=== PATIENT | female | born 1940 | race Caucasian/White ===

== ENCOUNTER → 2016-10-09 | Outpatient (CLI) | payer MEDICARE, OTHER | LOC: GMA 18:17 | PROVIDERS: ATTEND Nurse Practitioner Acute Care | DX: N30.00 Acute cystitis without hematuria (principal) ==

== ENCOUNTER → 2016-10-18 | Outpatient (CLI) | payer MEDICARE, OTHER ==
--- NOTE | 2016-10-18 16:20 | CT ---
EXAM DESCRIPTION: CT ABDOMEN PELVIS WITHOUT IV CONTRAST CLINICAL HISTORY: URINARY TRACT INFECTION, LLQ PAIN COMPARISON: None. TECHNIQUE: Noncontrast transaxial CT images of the abdomen and pelvis are obtained using renal stone imaging protocol. CT scan done according to ALARA (As Low As Reasonably Achievable). FINDINGS: Visualized lung bases show no acute findings. Noncontrast appearance of the liver, spleen, pancreas, and adrenal glands is unremarkable. Probable small hiatal hernia. Cholecystectomy changes without biliary tract obstruction. Mild to moderate atherosclerotic disease. Kidneys show no abnormal calcifications. No ureteral calcification or obstruction is seen. Urinary bladder is contracted and not well evaluated. There is surgical absence of the uterus. The ovaries are not identified. Appendix is not seen. No small bowel obstruction. Mildly increased amount of stool throughout the colon is seen. There are moderate scattered diverticuli of the descending to sigmoid colon without associated inflammatory changes or fluid collections. Osseous structures show no aggressive bony lesions. Curvature of the mid lumbar spine with convexity towards the left. Moderate degenerative changes of the mainly lower lumbar spine are seen. No pathologic abdominal or retroperitoneal lymphadenopathy. Small fat containing umbilical hernia is seen. IMPRESSION: No acute findings on CT of the abdomen and pelvis. No significant nephrolithiasis or ureteral obstruction. Colon diverticulosis without CT evidence of diverticulitis. Electronically signed by: Maxime Sheldon MD 10/18/2016 16:18
== END ==
LOC: RESP 14:58
PROVIDERS: ATTEND Family Medicine
DX: N39.0 Urinary tract infection, site not specified (principal); K57.30 Diverticulosis of large intestine without perforation or abscess without bleeding; R10.32 Left lower quadrant pain

== ENCOUNTER → 2016-11-29 | Outpatient (CLI) | payer MEDICARE, OTHER | END | disposition home or self-care (01) | LOC: GMAJ 16:44 | PROVIDERS: ATTEND Family Medicine | DX: I10 Essential (primary) hypertension (principal) ==

== ENCOUNTER → 2016-12-27 | Outpatient (CLI) | payer MEDICARE, OTHER | END | disposition home or self-care (01) | LOC: LAB.O 09:13 | PROVIDERS: ATTEND Nurse Practitioner Family | DX: I10 Essential (primary) hypertension (principal); E53.8 Deficiency of other specified B group vitamins; E55.9 Vitamin D deficiency, unspecified ==

== ENCOUNTER → 2017-01-18 | Outpatient (CLI) | payer MEDICARE, OTHER ==
--- NOTE | 2017-01-19 04:24 | RAD ---
Procedure: XR KNEE 4 OR MORE VIEWS Exam Date: 01/18/2017 Ordering Provider: JUDY BATES Clinical Indication: PAIN Comparison: None FINDINGS: There is no fracture or dislocation. Moderate to severe joint space narrowing in the medial compartment. Chondrocalcinosis. No lytic or sclerotic lesions. No joint effusion. No subcutaneous gas. IMPRESSION: 1. No acute fracture or dislocation in the left knee. 2. Moderate to severe joint space narrowing in the medial compartment. 3. Chondrocalcinosis. Electronically signed by: Agustín De La Paz MD 01/19/2017 4:24 AM CDT
--- NOTE | 2017-01-19 04:53 | RAD ---
Procedure: XR PELVIS 1-2 VIEWS Exam Date: 01/18/2017 Ordering Provider: JUDY BATES Clinical Indication: PAIN Comparison: 10/18/2016 CT abdomen pelvis FINDINGS: There is no fracture or dislocation. Articular surface of each hip is intact. The sacroiliac joints are preserved bilaterally. The pubic symphysis is normal. There are no lytic or sclerotic lesions. There are no suspicious calcifications. Impression: 1. No acute findings within the pelvis or either hip. Electronically signed by: Agustín De La Paz MD 01/19/2017 4:53 AM CDT
--- NOTE | 2017-01-19 04:57 | RAD ---
Procedure: XR KNEE 4 OR MORE VIEWS Exam Date: 01/18/2017 Ordering Provider: JUDY BATES Clinical Indication: PAIN IN RIGHT KNEE Comparison: None FINDINGS: There is no fracture or dislocation. The articular surfaces of the right knee are intact. Mild joint space narrowing in the medial compartment. Chondrocalcinosis. No lytic or sclerotic lesions. No joint effusion. No subcutaneous gas. IMPRESSION: 1. No acute fracture or dislocation in the right knee. 2. Mild joint space narrowing in the medial compartment. 3. Chondrocalcinosis. Electronically signed by: Agustín De La Paz MD 01/19/2017 4:56 AM CDT
== END ==
LOC: RAD 15:12
PROVIDERS: ATTEND Orthopaedic Surgery
DX: M25.561 Pain in right knee (principal); M25.551 Pain in right hip; M11.262 Other chondrocalcinosis, left knee; M11.261 Other chondrocalcinosis, right knee

== ENCOUNTER → 2017-04-06 | Outpatient (CLI) | payer MEDICARE, OTHER | LOC: GMA 18:02 | PROVIDERS: ATTEND Nurse Practitioner Family | DX: N30.00 Acute cystitis without hematuria (principal) ==

== ENCOUNTER 2017-08-08 16:26 | Inpatient (IN) | payer MEDICARE, OTHER ==
[2017-08-08] MEDS ORDERED: SODIUM CHLORIDE 0.9% (FLUSH) 10 ML SYG IV PRN ×2 (16:51→21:35)
[2017-08-08] MEDS ORDERED: PANTOPRAZOLE INJECTION 40 MG in SODIUM CHLORIDE 0.9% 100ML 100 ML IVPB ONE (16:52)
[2017-08-08] MEDS ORDERED: LIDOCAINE VIS-MYLANTA 30 ML UD PO ONE (16:52)
[2017-08-08] MEDS ORDERED: ONDANSETRON INJ 4 MG/2 ML VIAL IV ONE (16:53)
--- NOTE | 2017-08-08 16:56 | ED.PDOC ---
History of Present Illness - General Chief Complaint: Chest Pain/MS Stated Complaint: INDIGESTION Time Seen by Provider: 08/08/17 16:27 Source: patient Exam Limitations: no limitations - History of Present Illness Initial Comments: PT SENT OVER FROM [facility] FOR [facility]ALUATION DUE TO SYMPTOMS OF INDIGESTION FOR THE PAST 2 DAYS. PT REPORTS FEELING IRRITATED IN THE CHEST AND UPPER ABDOMEN FOR THE PAST 2 DAYS. PT REPORTS SYMPTOMS WERE PRECEEDED BY GENERALIZED MALAISE FOR THE PAST SEVERAL DAYS. PT DENIES SOB OR CHEST PRESSURE. Timing/Duration: 1 week Severity: moderate Improving Factors: nothing Worsening Factors: nothing Associated Symptoms: malaise Allergies/Adverse Reactions: Allergies Codeine Allergy (Verified 08/08/17 16:46) Propoxyphene [From Darvocet-N] Allergy (Verified 08/08/17 16:46) Topiramate [From Topamax] Allergy (Verified 08/08/17 16:46) Home Medications: Ambulatory Orders Ascorbic Acid [Vitamin C] 1,000 mg PO DAILY 02/01/15 Cholecalciferol [Vitamin D] 1,000 unit PO DAILY 02/01/15 Diphenoxylate/Atropine [Lomotil Tab] 5 mg PO PRN PRN 02/01/15 Estradiol Vaginal [Estring] 2 mg VA DAILY 02/01/15 Krill Oil [Krill Oil 1000 mg] 1 cap PO DAILY 02/01/15 Sitagliptin-Metformin HCl [Janumet] 1 tab PO DAILY 02/01/15 Vitamin E 400 unit PO DAILY 02/01/15 Review of Systems - Review of Systems Constitutional: States: malaise. Denies: chills, fever EENTM: Denies: nose congestion, throat pain Respiratory: Denies: cough, short of breath Cardiology: Denies: palpitations, syncope Gastrointestinal/Abdominal: Denies: diarrhea, vomiting Genitourinary: Denies: dysuria, frequency Musculoskeletal: Denies: joint pain, muscle pain Skin: Denies: change in color, dryness Neurological: Denies: headache, numbness Endocrine: Denies: increased thirst, increased urine, unexplained weight loss Hematologic/Lymphatic: Denies: easy bleeding, easy bruising Past Medical History (General) - Patient Medical History Hx Congestive Heart Failure: No Hx Hypertension: Yes - NOT TAKING PRESCRIBED HTN MEDS Hx Diabetes: Yes Surgical History: appendectomy, tonsillectomy, Hysterectomy - Vaccination History Hx Influenza Vaccination: No Hx Pneumococcal Vaccination: No - Social History Hx Tobacco Use: No Hx Alcohol Use: No Hx Substance Use: No Hx Substance Use Treatment: No Hx Depression: No - Female History Patient is a Female of Child Bearing Age (10 -59 yrs old): No Family Medical History - Family History Mother Family History: Unknown Physical Exam - Physical Exam General Appearance: Alert, Comfortable, No apparent distress, Well Developed, Well Groomed, Well Hydrated Ears, Nose, Throat: normal ENT inspection, normal pharynx Neck: full range of motion, supple, normal inspection Respiratory: chest non-tender, lungs clear, normal breath sounds, no respiratory distress Cardiovascular/Chest: regular rate, rhythm, no murmur Gastrointestinal/Abdominal: non tender, soft, no organomegaly Back Exam: normal inspection, no CVA tenderness Extremity: non-tender, normal inspection Neurologic: alert, normal mood/affect, oriented x 3 Skin Exam: normal color, warm/dry Progress - Progress Progress: 08/08/17 18:37 PTS BP SIGNIFICANTLY IMPROVED AFTER IV LABETALOL. NOW 152/83. LABS AND DIAGNOSTIC STUDIES DISCUSSED WITH PATIENT WHO AGREES WITH PLAN TO ADMIT FOR IV HYDRATION AND FURTHER OBSERVATION. - Results/Orders Results/Orders: Laboratory Tests 08/08/17 08/08/17 17:11 18:25 WBC 12.0 H RBC 5.57 H Hgb 15.5 Hct 47.5 H MCV 85.2 MCH 27.8 MCHC 32.7 L RDW 13.9 Plt Count 255 MPV 9.6 Absolute Neuts (auto) 9.30 H Absolute Lymphs (auto) 1.40 Absolute Monos (auto) 1.20 H Absolute Eos (auto) 0.00 Absolute Basos (auto) 0.10 Neutrophils % 77.4 Lymphocytes % 11.4 L Monocytes % 10.0 H Eosinophils % 0.2 L Basophils % 1.0 PT 10.5 INR 0.930 PTT (SP) 34.5 Sodium 136 Potassium 3.9 Chloride 107 Carbon Dioxide 16 L Anion Gap 16.9 BUN 13 Creatinine 0.67 BUN/Creatinine Ratio 19.4 Random Glucose 165 H Serum Osmolality 275.8 Calcium 10.4 H Magnesium 2.1 Creatine Kinase 38 CK-MB (CK-2) 2.3 CK-MB (CK-2) % Not Reportable Troponin I 0.02 Serum Ketones Negative - EKG/XRAY/CT EKG: Sinus - @91BPM, NL INTERVALS, NL AXIS, no ST T wave changes, Unchanged from - 02/02/15 XRAY: chest - NO ACTIVE DISEASE Departure - Departure Clinical Impression: Gastroesophageal reflux disease, Uncontrolled hypertension, Noncompliance with medication regimen, Hypercalcemia, Metabolic acidosis, Dehydration, Leukocytosis Time of Disposition: 18:43 Disposition: Admit Patient Condition: Fair Departure Forms: ED Discharge - Pt. Copy, Patient Portal Self Enrollment Instructions: DI for Chest Pain Referrals: Shane Lux MD [Primary Care Provider] - 1-2 Weeks Home Medications: Ambulatory Orders Ascorbic Acid [Vitamin C] 1,000 mg PO DAILY 02/01/15 Cholecalciferol [Vitamin D] 1,000 unit PO DAILY 02/01/15 Diphenoxylate/Atropine [Lomotil Tab] 5 mg PO PRN PRN 02/01/15 Estradiol Vaginal [Estring] 2 mg VA DAILY 02/01/15 Krill Oil [Krill Oil 1000 mg] 1 cap PO DAILY 02/01/15 Sitagliptin-Metformin HCl [Janumet] 1 tab PO DAILY 02/01/15 Vitamin E 400 unit PO DAILY 02/01/15 Decision To Admit - Decistion To Admit Decision to Admit Reason: Admit from ER - UNCONTROLLED HTN, METABOLIC ACIDOSIS, DEHYDRATION, HYPERCALCEMIA Decision to Admit Date: 08/08/17 - CASE DISCUSSED WITH DR. RODRIGUEZ WHO AGREES TO ADMIT Decision to Admit Time: 18:44
[2017-08-08] MEDS ORDERED: LABETALOL INJ 5 MG/ML VIAL IV ONE (16:59)
[2017-08-08] MEDS ORDERED: PANTOPRAZOLE SODIUM IV 40 MG VIAL ONE (17:04)
[2017-08-08] MEDS ORDERED: SODIUM CHLORIDE 0.9% 100ML 100 ML IVPB ONE (17:05)
--- NOTE | 2017-08-08 18:11 | RAD ---
EXAM DESCRIPTION: Chest,1 View CLINICAL HISTORY: chest pain COMPARISON: 02/01/2015 FINDINGS: Cardiac silhouette is within normal limits. There is no focal parenchymal or pleural disease. Visualized osseous structures are within normal limits. IMPRESSION: No evidence of acute cardiopulmonary disease. Electronically signed by: Jacobo Uribe 08/08/2017 6:10 PM [facility]
[2017-08-08] MEDS ORDERED: SODIUM CHLORIDE 0.9% 1000ML 1,000 ML IVS ONE (18:16)
[2017-08-08] MEDS ORDERED: HYDROcodone 5MG/APAP 325MG 1 EA TAB PO ONE (18:56)
--- NOTE | 2017-08-08 20:09 | HP ---
HISTORY OF PRESENT ILLNESS: This 77-year-old, white female is admitted to the hospital viability the Emergency Room. She has been getting progressively sicker with a severe upper chest "indigestion" over the last 2 to 3 days. This is associated with weakness, malaise and a loss of appetite. She states she has lost about 10 pounds in the last 3 or 4 weeks because of not feeling well. She has even tried a gluten-free diet after being seen by the GI doctors. She enters into the Emergency Room very hypertensive with a blood pressure 175/110 and a moderate degree of distress. Her blood pressure was so high and her symptoms so significant that she was given labetalol 10 mg IV which seemed to help to control some of the hypertensive reaction. It is of note that she was started on 3 new diabetic medicines within the last 3 or 4 weeks to assist with diabetic control. Before that, she was on another type of diabetic pill that she does not recall. The medicines started less than a month ago are Farxiga, Januvia and glimepiride. Her symptoms of indigestion appear to be waves of indigestion. She has had diabetes mellitus for 10 years. She is very averse to having to start insulin at this time. The patient is admitted to the hospital with evidence of severe metabolic acidosis with pH down to 7.23 and significantly reduced CO2 with a respiratory attempt to compensate. PAST MEDICAL HISTORY: PAST SURGICAL HISTORY: 1. Cholecystectomy. 2. Appendectomy. 3. Hysterectomy. OB HISTORY: She has had 4 pregnancies and has given to 4 children. CURRENT MEDICATIONS: Please refer to the list as verified by the nurses for home medications. These include Farxiga, glimepiride, and Januvia, all of which and/or combination of which have been noted to be significantly related to metabolic acidosis. ALLERGIES: CODEINE, PROPOXYPHENE, TOPIRAMATE. FAMILY HISTORY: Positive for diabetes mellitus, coronary artery disease and cancer. 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 REVIEW OF SYSTEMS: GENERAL: She has lost some weight of about 10 pounds in the last month with her decreased appetite. No fever or chills recently. HEENT: No hearing or visual disturbances. LUNGS: No cough. Mild shortness of breath upon exertion noted. CARDIOVASCULAR: Some upper chest wall indigestion and discomfort are noted, but no palpitations. GASTROINTESTINAL: Mild nausea, but no emesis. Loss of appetite and weight loss. No blood in the stools. GENITOURINARY: No dysuria. EXTREMITIES: No significant edema except swelling in the left knee occasionally. NEUROLOGIC: No focal neurological deficits. PHYSICAL EXAMINATION: VITAL SIGNS: Afebrile. Pulse 93. Blood pressure initially 194/100. After medication was given, it was down to 151/73. Pulse oximetry 98% on room air. Weight 45.4 kg estimated. GENERAL: The patient is awake, alert and cooperative with fair memory of her past history. HEENT: Unremarkable. NECK: Supple with no carotid bruits. LUNGS: Clear. CARDIOVASCULAR: Heart tones are regular without any significant gallops. ABDOMEN: Soft with no organomegaly, masses or tenderness noted. EXTREMITIES: Fairly well-formed. No significant pedal edema or joint swelling at this time. NEUROLOGIC: No focal neurological deficits are noted. The patient is awake, alert, oriented and communicative. LABORATORY: White count 12,000 with 77% neutrophils, hemoglobin 15.5. INR 0.93. Blood gas shows significant metabolic acidosis with pH 7.23, bicarb 12.4 , PO2 low at 70, PCO2 low at 31. Chemistries showed sodium 136, potassium 3.9, CO2 low at 16, anion gap is normal at 16.9, BUN 13, creatinine 0.67, osmolality normal, lactic acid 1.1, calcium 10.4, magnesium 2.1, troponin 0.02. Urinalysis does show some trace of blood, some mild pyuria and some glycosuria, rare bacteria. No culture obtained. Serum ketones are negative. Chest x-ray shows no acute findings. ASSESSMENT: 1. Moderately severe metabolic acidosis of undetermined etiology, yet possibly related to a triad of oral hypoglycemic agents including Farxiga, Januvia and glimepiride working together for her diabetes. 2. Hypertension, uncontrolled, requiring initiation of treatment. 3. Diabetes mellitus, type 2, for the last 10 years, currently on oral hypoglycemics and will now be started on a sliding scale as we evaluate the severity of her diabetes. 4. Chest pain, rule out underlying ischemic coronary disease with repeat enzymes in the morning. 5. Mild leukocytosis. 6. Mild hypercalcemia. 7. Mild dehydration state. 8. Weight loss. PLAN: The patient will be started on amlodipine for initial approach to the hypertension and observe closely. Her diabetic medicines started less than a month ago will be stopped and she will be continued on sliding with a 1500 calorie ADA diet. Line Up Worker instruction on diet use at home. Increase activity level. Try Carafate and Prilosec. May start Levemir depending upon the amount of sliding scale Humalog insulin required. Give some IV hydration overnight and close followup with recheck of chemistries and acid base in the morning. Close followup with Dr. Lux in the clinic when the patient is stable to continue with outpatient management. #[id number] [facility]
[2017-08-08] MEDS ORDERED: DEXTROSE 50% 25 GM/50 ML SYG IV PRN (21:35)
[2017-08-08] MEDS ORDERED: GLUCAGON INJ 1 MG VIAL SUBCU PRN (21:35)
[2017-08-08] MEDS ORDERED: ONDANSETRON INJ 4 MG/2 ML VIAL IV PRN (21:35)
[2017-08-08] MEDS ORDERED: MAGNESIUM HYDROXIDE 30 ML UD PO PRN (21:35)
[2017-08-08] MEDS ORDERED: IV SET AND CAP CHANGE INJ INJ SCH (22:00)
[2017-08-08] MEDS: SUCRALFATE 1 GM/10 ML 1 GM UD PO SCH (22:41)
[2017-08-08] MEDS: HYDROcodone 5MG/APAP 325MG 1 EA TAB PO PRN (22:41)
[2017-08-09] MEDS ORDERED: DEX 5% W/NACL 0.45% 1000ML 0 ML IVS ONE (02:23)
[2017-08-09] MEDS ORDERED: KCL 20MEQ/0.45% NS 0 ML IVS ONE (02:38)
[2017-08-09] MEDS: KCL 20 MEQ/NS 1,000 ML IVS PRN ×3 (02:46→20:07)
[2017-08-09] MEDS: HYDROcodone 5MG/APAP 325MG 1 EA TAB PO PRN ×4 (02:59→23:39)
[2017-08-09] MEDS: OMEPRAZOLE CAP 20 MG CAP PO SCH (06:25)
[2017-08-09] MEDS: SUCRALFATE 1 GM/10 ML 1 GM UD PO SCH ×4 (06:28→20:43)
[2017-08-09] MEDS: INSULIN LISPRO 100 UNITS/ML PEN SUBCU SCH ×4 (07:11→21:27)
[2017-08-09] MEDS: INSULIN DETEMIR 100 UNITS/ML PEN SUBCU SCH ×2 (12:37→13:04)
[2017-08-09] MEDS: SODIUM BICARBONATE 650 MG TAB PO SCH ×2 (15:19→20:43)
[2017-08-09] MEDS ORDERED: INSULIN DETEMIR 100 UNITS/ML PEN SUBCU SCH (15:37)
--- NOTE | 2017-08-09 18:49 | PN ---
DATE: 08/09/17 SUBJECTIVE: The patient is alert and communicative, and generally feels much better. It was during the night last evening that the heavy indigestion feeling that she had in her upper chest tended to go away completely. She is able to get up and around today without the discomfort. She is very much wanting to go home but will require some specialized ongoing observation and management as her diabetes requires a new treatment course. Her condition is discussed with Dr. Lux who will be able to come by and see her tomorrow to assist with ongoing management and to initiate outpatient followup. Appetite is improving. The significant symptoms over the last 3 weeks seem to be lifting up a little bit as her diabetes control continues. All of her diabetic oral medications have been stopped upon admission because of their possible contribution to the significant metabolic acidosis present. Her condition is discussed with her granddaughter who has diabetes as well as a daughter who is entry level accounting clerk in a dialysis center in [place]. OBJECTIVE: Afebrile, blood pressure 180/70, pulse oximetry 98%. Weight is going up a little bit and will need to be re-verified hopefully with a stand up scale. LUNGS: Clear. HEART: Tones are regular. ABDOMEN: Soft. LABORATORY: White count is down from 12,00 to 8,800 with 65% neutrophils. Chemistry has shown slight improvement with the CO2 on the electrolyte panel increasing from 16 to 17. Her hemoglobin A1c is elevate at 9.8. Lactic acid 1.1. Calcium is 9.2 down from 10.4. Osmolality is stable at 276. Troponin stable at 0.02. Albumin 3.3. Lipase slightly elevated at 147. Glucose this morning is 140 fasting. No cultures obtained. ASSESSMENT: 1. Moderately severe metabolic acidosis of undetermined etiology yet possibly related to a triad of oral hypoglycemic agents, including Farxiga, Januvia and Glimepiride working together for her diabetes with associated dehydration state. 2. Hypertension uncontrolled requiring initiation of treatment. 3. Diabetes mellitus type 2 for the last 10 years currently on oral hypoglycemics and will now be started on a sliding scale as we evaluate the severity of her diabetes. 4. Chest pain with no evidence of underlying ischemic coronary disease with repeat enzymes being within normal limits. 5. Mild leukocytosis. 6. Mild hypercalcemia, improved. 7. Mild dehydration state, improved. 8. Weight loss recently. PLAN: Will continue with the gentle hydration. The sugars will be followed closely with sliding scale and by in the morning a decision can be made regarding a long-acting insulin such as Levemir and she may benefit from approximately 8 to 12 units once a day. Final decision based upon the flow of glucose results tomorrow morning. The patient is encouraged to stop all oral hypoglycemic agents at this time. She will require continued specialized followup with Dr. Lux in the clinic. It will be important to reevaluate her in the morning as decisions are made regarding her ongoing diabetes management, but also to continue evaluation for potential etiologies of the significant metabolic acidosis that she presents with. Ketoacetones and lactic acid appear to be within normal limits. #[id number] [facility]
[2017-08-09] MEDS ORDERED: FLUCONAZOLE 100 MG TAB PO ONE (21:45)
[2017-08-10] MEDS: KCL 20 MEQ/NS 1,000 ML IVS PRN (05:17)
[2017-08-10] MEDS ORDERED: FLUCONAZOLE 100 MG TAB PO ONE ×2 (06:08→09:00)
[2017-08-10] MEDS: OMEPRAZOLE CAP 20 MG CAP PO SCH (06:34)
[2017-08-10] MEDS: SUCRALFATE 1 GM/10 ML 1 GM UD PO SCH ×2 (06:45→09:36)
[2017-08-10] MEDS: HYDROcodone 5MG/APAP 325MG 1 EA TAB PO PRN (06:45)
[2017-08-10] MEDS: INSULIN LISPRO 100 UNITS/ML PEN SUBCU SCH ×2 (07:22→11:26)
[2017-08-10] MEDS: SODIUM BICARBONATE 650 MG TAB PO SCH (08:17)
[2017-08-10] MEDS ORDERED: FLUCONAZOLE 100 MG TAB PO SCH (09:00)
[2017-08-10 10:04] VITALS: O2SAT 98
[2017-08-10 14:15] VITALS: BP 166/78; TEMP 98.4
--- NOTE | 2017-08-20 09:06 | DS ---
SUPERVISING PHYSICIAN: Shane Lux MD DISCHARGE DIAGNOSIS: 1. Moderately severe metabolic acidosis, felt to be secondary to multiple oral hypoglycemic agents, including Januvia, glimepiride along with newly started Farxiga for treatment of diabetes with associated dehydration state, showing improvement with fluids and oral bicarb. 2. Hypertension, uncontrolled, requiring close monitoring and IV labetalol, showing good response and controlled prior to discharge with blood pressure 166/78. 3. Diabetes mellitus, type 2, diagnosed 10 years previously, on oral hypoglycemics with the patient requiring close monitoring and insulin during hospitalization to control blood sugars with modification of her oral hypoglycemic agents. 4. Chest pain with no evidence of underlying ischemic coronary disease with cardiac enzymes being within normal limits. 5. Mild leukocytosis. 6. Mild hypercalcemia, improved. 7. Mild dehydration state, improved. 8. Recent weight loss. HISTORY OF PRESENT ILLNESS: This 77-year-old, white female is admitted to the hospital via the Emergency Room. She had been getting progressively sicker with a severe upper chest "indigestion" over the prior 2 to 3 days. This was associated with weakness, malaise and a loss of appetite. She states she has lost about 10 pounds in the last 3 or 4 weeks because of not feeling well. She has even tried a gluten-free diet after being seen by the GI doctors. She entered into the Emergency Room very hypertensive with a blood pressure 175/110 and a moderate degree of distress. Her blood pressure was so high and her symptoms so significant that she was given labetalol 10 mg IV which seemed to help to control some of the hypertensive reaction. It is of note that she was started on 3 new diabetic medicines within the last 3 or 4 weeks to assist with diabetic control. Before that, she was on another type of diabetic pill that she does not recall. The medicines started less than a month ago are Farxiga, Januvia and glimepiride. Her symptoms of indigestion appear to be waves of indigestion. She has had diabetes mellitus for 10 years. She is very averse to having to start insulin at this time. The patient was admitted to the hospital with evidence of severe metabolic acidosis with pH down to 7.23 and significantly reduced CO2 with a respiratory attempt to compensate. LABORATORY: White count initially on admission was 12,000 with discharge white count of 8,800. Hemoglobin and hematocrit were stable at 13.9 and 42.2 at discharge. Platelet count 195,000, differential within normal limits. Coagulation studies showed normal PT, PT-T. Blood gasses did show a metabolic acidosis with a pH of 7.23, PC02 31, P02 70, bicarb 12, base excess was -14, saturation 94% on room air. Chemistries initially on admission showed normal electrolytes with carbon dioxide 16. Glucose 165, calcium 10.4, magnesium 2.1. Cardiac enzymes within normal limits times 2. Lipase slightly elevated at 147 , amylase 88. Prior to discharge, electrolytes were within normal limits. BUN 12, creatinine 0.63. Liver functions within normal limits. Blood sugars stable in 140s and 150s. Urinalysis showed 500 glucose, trace lysed blood with small amount of bilirubin. Microscopic showed 2 to 5 WBCs with 3 to 5 epithelial cells. Serum ketones were negative. MICROBIOLOGY: No specimens were submitted. RADIOLOGY: Chest x-ray prior to admission in the Emergency Department and per radiologic interpretation showed no evidence of acute cardiopulmonary disease. EKG in the Emergency Room showed normal sinus rhythm with no acute ST changes. HOSPITAL COURSE: Ms. Mercado was admitted as noted in history of present illness for metabolic acidosis felt to be related to initiation of a new hypoglycemic agent as noted above. That agent was held, which was Farxiga. She was somewhat hypertensive as well. This was controlled with labetalol with blood pressure initially 194/110. Prior to discharge and after treatment, blood pressure was controlled at 160/78 with heart rate 74, saturation 98% and afebrile. She was on a sliding scale while in the hospital and showed good response with blood sugars as well as given IV fluids for underlying dehydration. She was started on Diflucan for underlying yeast infection and was given a total of 3 days of Diflucan. She showed good clinical response to treatment and was felt stable enough to be discharged home to continue with outpatient treatment plan. In the course of talking to the patient prior to discharge, it was found out that she had been taking an herb from a health food store in the last several months that could possibly be contributing to her uncontrolled blood sugars and ongoing acidosis. She was encouraged to not take any medications or herbal medications that not prescribed or recommended by her doctors. PLAN: The patient was discharged on 08/10/17 with instructions to followup with her primary care provider, Dr Lux, in 7 days. She was to stop all herbal medications that she was taking and to hold her Farxiga and she was told to resume by Dr. Lux. She was encouraged to keep a blood sugar log and take it with her to see Dr. Lux in followup. She was encouraged to continue with fluids to prevent dehydration and told to return to the hospital should she have any concerning symptoms. DISCHARGE MEDICATIONS: 1. Omeprazole 20 mg daily, #30. All other medications were resumed except for the Farxiga as mentioned above. Again, she was told to stop taking any medications that were not prescribed by Dr. Lux. DIET AT DISCHARGE: Diabetic diet as tolerated. ACTIVITY: Increase as tolerated. CONDITION AT DISCHARGE: Stable and improved. #[id number] [facility]
== END 2017-08-10 15:27 | disposition home or self-care (01) | DRG 918 ==
LOC: ER 16:26 → OBSVTOIN 20:06 → MS 20:06
PROVIDERS: ADMIT Emergency Medicine; ATTEND Nurse Practitioner Family
DX: T50.991A Poisoning by other drugs, medicaments and biological substances, accidental (unintentional), initial encounter (principal); E87.2 Acidosis; I10 Essential (primary) hypertension; E11.9 Type 2 diabetes mellitus without complications; R07.9 Chest pain, unspecified; E83.52 Hypercalcemia; E86.0 Dehydration; K21.9 Gastro-esophageal reflux disease without esophagitis; R63.4 Abnormal weight loss; D72.829 Elevated white blood cell count, unspecified; Z88.5 Allergy status to narcotic agent; Z79.84 Long term (current) use of oral hypoglycemic drugs; Z88.8 Allergy status to other drugs, medicaments and biological substances; Y92.009 Unspecified place in unspecified non-institutional (private) residence as the place of occurrence of the external cause; Z79.890 Hormone replacement therapy; Z79.899 Other long term (current) drug therapy

== ENCOUNTER → 2017-09-04 | Outpatient (CLI) | payer MEDICARE, OTHER ==
--- NOTE | 2017-09-04 17:44 | MRI ---
EXAM DESCRIPTION: Brain w/oContrast CLINICAL HISTORY: MEMORY LOSS COMPARISON: None TECHNIQUE: Multiplanar multisequence imaging of the brain including the intravenous administration of contrast. FINDINGS: There is reversal of the normal lordotic curvature of the cervical spine, with extensive degenerative change and partial fusion of the vertebral bodies at at least two levels. Patient motion limits detail. Scattered foci of increased T2 signal intensity do not exert significant mass effect on surrounding structures and may be sequela of prior insult, most likely on the basis of small vessel disease. Subependymal subcentimeter focus of increased FLAIR and T2 signal intensity may be also sequela of prior insult but is nonspecific. There is no definite evidence of acute mass, mass effect, midline shift or hemorrhage. No focal abnormal extra-axial fluid collection is seen. The ventricles, basal cisterns and extra-axial fluid spaces are normal in size and configuration. Brain parenchymal signal is otherwise normal. IMPRESSION: No acute abnormalities. Electronically signed by: Jacobo Uribe 09/04/2017 5:43 PM [facility]
== END ==
LOC: MRI 16:41
PROVIDERS: ATTEND Family Medicine
DX: F03.90 Unspecified dementia, unspecified severity, without behavioral disturbance, psychotic disturbance, mood disturbance, and anxiety (principal)

== ENCOUNTER 2017-10-27 22:09 | Inpatient (IN) | payer MEDICARE, OTHER ==
[2017-10-27] MEDS ORDERED: POTASSIUM CHLORIDE ELIXIR 20 MEQ/15 ML UD PO ONE (23:26)
[2017-10-27] MEDS ORDERED: SODIUM CHLORIDE 0.9% 1000ML 500 ML IVS ONE (23:30)
--- NOTE | 2017-10-28 00:39 | CT ---
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 Images in the axial and coronal planes were presented for interpretation This exam was performed according to our departmental dose-optimization program, which includes automated exposure control, adjustment of the mA and/or kV according to patient size and/or use of iterative reconstruction technique. FINDINGS: The visualized portions of the lung bases are clear. The cardiomediastinal structures are within normal limits. Within the upper abdomen, the liver and spleen are normal in size and morphology. There are numerous hepatic metastases diffusely. In the hepatic dome on axial image 10 there is a dominant 3.2 cm metastatic lesion. In the left hepatic lobe on axial image 26 there is a patient portal representative 1.3 cm lesion. There are at least 40 enhancing hepatic lesions predominantly measuring between 0.5 and 5.0 cm in diameter. The gallbladder is surgically absent. There is moderate intra and extrahepatic biliary ductal dilation. There is an irregular hypoenhancing mass in the pancreatic head measuring up to 2.9 cm in diameter. There is diffuse pancreatic ductal dilation measuring up to 8 mm. The adrenal glands are normal in appearance bilaterally. The kidneys are normal in size bilaterally. The ureters are normal in course and caliber. There is circumferential gastric antral wall thickening best seen on axial image 30. There are dilated loops of small bowel throughout the mid and upper abdomen measuring up to 3.5 cm in diameter. The transition point of the small bowel in the midline lower abdomen on axial image 61. The small bowel distal to this level is largely collapsed. The appendix is not well-visualized. There are moderate descending and sigmoid colonic diverticula without associated wall thickening or inflammatory changes. Within the pelvis, the bladder and rectum are normal. The uterus is surgically absent. The ovaries are not well visualized. There are no pathologically enlarged inguinal, retroperitoneal, portacaval, or mesenteric lymph nodes. The soft tissue structures of the abdominal wall are normal. The visualized osseous structures are within normal limits for the patient's age. There are multilevel degenerative changes throughout the thoracolumbar spine with disc space narrowing and facet hypertrophy most pronounced at the L4/L5 and L5/S1 levels. The abdominal aorta and its primary branches are normal in course and caliber. Limited evaluation of the venous structures demonstrates no gross abnormalities. IMPRESSION: 1. Irregular pancreatic head mass with common bile duct/pancreatic ductal obstruction and diffuse hepatic metastases. These findings are consistent with metastatic pancreatic cancer. 2. Partial small bowel obstruction with transition point in the midline lower abdomen. 3. Diverticulosis without evidence of diverticulitis. Electronically signed by: Angelic Stock MD 10/28/2017 12:38 AM [facility]
--- NOTE | 2017-10-28 01:38 | ED.PDOC ---
History of Present Illness - General Chief Complaint: General Stated Complaint: Dr. Lux told patient to come to ED Time Seen by Provider: 10/27/17 22:13 Source: patient, family, other Exam Limitations: clinical condition - History of Present Illness Initial Comments: the patient is a 77-year-old female presenting to the emergency room secondary to jaundice. Her primary care doctor apparently got word to have her sent up here for workup of the jaundice. It is unclear how long should that she has been jaundiced. She has been having some itching for at least the last week to 10 days. There was some concern by one of the family members that this was due to a medication that she had just started. They had stopped and restarted that medication a couple times over the past week. The patient has apparently not been throwing up and not been having much in the way of pain. She did eat a little bit of food up here and did have some mild right upper quadrant pain after that. The patient is obviously jaundiced with the yellow extending down to about mid chest. She is alert and oriented but does obviously have some mild dementia. A neighbor actually brought her up here for further workup. No history of any liver disease. She has apparently already had her gallbladder taken out along time ago. She is pleasant and cooperative and not any significant pain upon initial evaluation. She has not thrown up here. No history of any hepatitis. She has not been sick recently otherwise. She has apparently for quite some time and having some watery stools and the daughter that is here today says that she has had some blood in her stools. She has also had a few episodes of incontinence. Timing/Duration: unsure Severity: moderate Improving Factors: nothing Worsening Factors: nothing Associated Symptoms: loss of appetite, malaise Allergies/Adverse Reactions: Allergies Codeine Allergy (Verified 10/27/17 22:50) Propoxyphene [From Darvocet-N] Allergy (Verified 08/08/17 16:46) Topiramate [From Topamax] Allergy (Verified 08/08/17 16:46) Home Medications: Ambulatory Orders Glimepiride 4 mg PO DAILY 08/08/17 HYDROcodone 5MG/APAP 325MG [[facility] 5/325] 1 ea PO Q8H PRN 08/08/17 Sitagliptin Phosphate [Januvia] 100 mg PO DAILY 08/08/17 Non-Formulary Medication 1 ea TOP Q6HR PRN 08/09/17 Omeprazole [Prilosec Cap] 20 mg PO DAILY@0630 #30 cap 08/10/17 Review of Systems - Review of Systems Constitutional: States: malaise EENTM: States: no symptoms reported Respiratory: States: no symptoms reported Cardiology: States: no symptoms reported Gastrointestinal/Abdominal: States: abdominal pain - ntermittent and mild, diarrhea - fairly long-standing according to the daughter Genitourinary: States: no symptoms reported Musculoskeletal: States: no symptoms reported Skin: States: no symptoms reported Neurological: States: no symptoms reported - dementia Endocrine: States: no symptoms reported All other Systems: No Change from Baseline Past Medical History (General) - Patient Medical History Hx Seizures: No Hx Stroke: No Hx Dementia: No Hx Asthma: No Hx of COPD: No Hx Cardiac Disorders: No Hx Congestive Heart Failure: No Hx Pacemaker: No Hx Hypertension: Yes Hx Thyroid Disease: No Hx Diabetes: Yes Hx Gastroesophageal Reflux: No Hx Renal Disease: No Hx of HIV: No Hx MRSA: No Surgical History: appendectomy, cholecystectomy, Hysterectomy - Vaccination History Hx Tetanus, Diphtheria Vaccination: No Hx Influenza Vaccination: No Hx Pneumococcal Vaccination: No - Social History Hx Tobacco Use: No Hx Alcohol Use: No Hx Substance Use: No Hx Substance Use Treatment: No Hx Depression: No Hx Physical Abuse: No Hx Emotional Abuse: No Family Medical History - Family History Mother Family History: Unknown Living Status: Hx Family Asthma: No Hx Family Congestive Heart Failure: No Hx Family Hypertension: No Hx Family Stroke: No Hx Cardiac Disease: No Hx Family Diabetes: No Hx Family Cancer: No Physical Exam - Physical Exam General Appearance: Alert, Comfortable, No apparent distress Eye Exam: bilateral normal Ears, Nose, Throat: hearing grossly normal, normal ENT inspection, normal pharynx Neck: full range of motion, supple, normal inspection Respiratory: lungs clear, normal breath sounds, no respiratory distress, no accessory muscle use Cardiovascular/Chest: normal peripheral pulses, regular rate, rhythm, no edema Peripheral Pulses: radial,right: 2+, radial,left: 2+, dorsalis pedis,right: 2+, dorsalis pedis,left: 2+ Gastrointestinal/Abdominal: soft, other - mild right upper quadrant discomfort palpation. No definite rebound or peritoneal signs. 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 Skin Exam: normal color - he patient has significant jaundice, jaundice Comments: Vital Signs - 24 hr 10/27/17 22:20 Temperature 99.6 F Pulse Rate [ 78 monitor] Respiratory 18 Rate Blood Pressure 178/75 [Left Arm] O2 Sat by Pulse 97 Oximetry Progress - Progress Progress: 10/28/17 01:46 the patient is a 77-year-old female presenting to emergency room secondary to jaundice of unknown origin. This appears to be due to likely pancreatic cancer with metastases up towards the liver and some extrahepatic ductal obstruction from this. Aside from the jaundice and the related itching, the patient is relatively asymptomatic at this point. She does have intermittent episodes of right upper quadrant discomfort that we will medicate for. She is mildly dehydrated and is going to receive some IV fluids tonight. She'll need to be watched for her diabetes. Upon request of the family present here tonight the patient has not been notified of her diagnoses. Other family members are apparently going to be present tomorrow when the patient is informed. The plan, at least tonight, is to admit the patient for some mild pain control and rehydration overnight and then discuss her prognosis and all options with their primary care doctor, Dr. Lux, tomorrow. depending upon their wishes, it may be beneficial for the patient to be transferred to a facility with gastroenterology capable of stenting open the common bile duct, to help reduce the hyperbilirubinemia and help the patient symptomatically. Additionally an oncology consult could be performed and further pertinent advice obtained. this seems to be a reasonable plan of action for this patient at this time given the indicated diagnosis. The patient does not have an advanced directive at this time that the family knows of. The other daughter apparently has the power of assistant prosecuting attorney. - Results/Orders Results/Orders: Laboratory Tests 10/27/17 10/27/17 10/27/17 22:45 22:45 22:45 WBC 12.3 H RBC 3.80 L Hgb 10.9 L Hct 32.4 L MCV 85.1 MCH 28.6 MCHC 33.5 RDW 15.8 H Plt Count 317 MPV 10.0 Absolute Neuts (auto) Not Reportable Absolute Lymphs (auto) Not Reportable Absolute Monos (auto) Not Reportable Absolute Eos (auto) Not Reportable Neutrophils % Not Reportable Neutrophils % (Manual) 73.0 Lymphocytes % Not Reportable Lymphocytes % (Manual) 9.0 Monocytes % Not Reportable Monocytes % (Manual) 12.0 Eosinophils % Not Reportable Basophils % Not Reportable Band Neutrophils 1.0 Eosinophils 5.0 Hypochromia 1+ Toxic Granulation 1+ Platelet Estimate Normal Target Cells 1+ PT 12.9 H INR 1.140 PTT (SP) 29.5 Sodium 137 Potassium 3.2 L Chloride 104 Carbon Dioxide 24 Anion Gap 12.2 BUN 10 Creatinine 0.42 L BUN/Creatinine Ratio 23.8 H Random Glucose 68 L Serum Osmolality 271.2 L Calcium 9.7 Total Bilirubin 12.6 H* Direct Bilirubin Indirect Bilirubin AST 147 H ALT 121 H Alkaline Phosphatase 797 H LD Total Creatine Kinase 56 CK-MB (CK-2) 1.6 CK-MB (CK-2) % Not Reportable Troponin I 0.04 B-Natriuretic Peptide 172.0 H Serum Total Protein 6.6 Albumin 2.9 L Globulin 3.7 H Albumin/Globulin Ratio 0.8 L Amylase 17 L Lipase 18 L TSH 1.52 Urine Color Urine Appearance Urine pH Ur Specific [place] Urine Protein Urine Glucose (UA) Urine Ketones Urine Blood Urine Nitrite Urine Bilirubin Urine Urobilinogen Ur Leukocyte Esterase Urine RBC Urine WBC Ur Epithelial Cells Urine Bacteria 10/27/17 10/27/17 10/27/17 22:45 22:45 23:46 WBC RBC Hgb Hct MCV MCH MCHC RDW Plt Count MPV Absolute Neuts (auto) Absolute Lymphs (auto) Absolute Monos (auto) Absolute Eos (auto) Neutrophils % Neutrophils % (Manual) Lymphocytes % Lymphocytes % (Manual) Monocytes % Monocytes % (Manual) Eosinophils % Basophils % Band Neutrophils Eosinophils Hypochromia Toxic Granulation Platelet Estimate Target Cells PT INR PTT (SP) Sodium Potassium Chloride Carbon Dioxide Anion Gap BUN Creatinine BUN/Creatinine Ratio Random Glucose Serum Osmolality Calcium Total Bilirubin 12.2 H* Direct Bilirubin 7.9 H Indirect Bilirubin 4.3 H AST ALT Alkaline Phosphatase LD Total 290 H D Creatine Kinase CK-MB (CK-2) CK-MB (CK-2) % Troponin I B-Natriuretic Peptide Serum Total Protein Albumin Globulin Albumin/Globulin Ratio Amylase Lipase TSH Urine Color Radha H Urine Appearance Clear Urine pH 6.0 Ur Specific [place] 1.015 Urine Protein Negative Urine Glucose (UA) 500 H Urine Ketones Negative Urine Blood Negative Urine Nitrite Negative Urine Bilirubin Large Urine Urobilinogen 2.0 H Ur Leukocyte Esterase Negative Urine RBC 0 Urine WBC 1-3 Ur Epithelial Cells 1-[address] scan of the abdomen and pelvis with contrast shows greater than 40 hepatic metastases. There is a 2.9 cm mass in the head of the pancreas causing ductal obstruction in the pancreas as well as moderate extrahepatic ductal dilation. She also has circumferential gastric antral wall thickening. there is some mention of the possibility of a small bowel obstruction. The patient is not exhibiting symptoms of a small bowel obstruction. She has been eating and drinking and having bowel movements and passing gas. Departure - Departure Clinical Impression: Pancreatic cancer metastasized to liver Disposition: Admit Patient Referrals: Shane Lux MD [Primary Care Provider] - 1-2 Weeks Home Medications: Ambulatory Orders Glimepiride 4 mg PO DAILY 08/08/17 HYDROcodone 5MG/APAP 325MG [[facility] 5/325] 1 ea PO Q8H PRN 08/08/17 Sitagliptin Phosphate [Januvia] 100 mg PO DAILY 08/08/17 Non-Formulary Medication 1 ea TOP Q6HR PRN 08/09/17 Omeprazole [Prilosec Cap] 20 mg PO DAILY@0630 #30 cap 08/10/17 Decision To Admit - Decistion To Admit Decision to Admit Reason: Medical Nature Decision to Admit Date: 10/28/17 Decision to Admit Time: 01:54
[2017-10-28] MEDS ORDERED: HYDROcodone 7.5MG/APAP 325MG 1 EA TAB PO ONE (01:51)
--- NOTE | 2017-10-28 01:58 | HP ---
SUPERVISING PHYSICIAN: Shane Lux M.D. CHIEF COMPLAINT: Jaundice. HISTORY OF PRESENT ILLNESS: Ms. Mercado is a 77 year-old female patient that presented to the Emergency Department secondary to worsening jaundice. She noted that she had been having increasing jaundice over the last several days and before that had started having some significant itching. One of the patient's family members was concerned that some of her medications may be resulting in her symptoms which had been started in the last several weeks. She had also noted that she had not been having any significant nausea or vomiting, or any kind of significant pain. She did have at some point mid right upper quadrant pain after a small meal, but again obviously the jaundice had worsened to where the patient was yellow extending from the top of her head down to the mid chest. A neighbor actually brought her to the Emergency Department after her family members had contacted her primary care provider, Dr. Lux, who recommended that she be seen and evaluated in the Emergency Department for the worsening developing jaundice. She had no significant history of hepatitis and has been fairly healthy in the last several weeks. She has noted that she has had some watery stools in the last week or so, but is unsure if she has had any blood in her stools and that she has also been somewhat incontinent of stool at times. Initial lab work in the Emergency Department was significant for mild leukocytosis of 12,300 with a left shift. Chemistries show her liver functions were significantly elevated with an initial total bilirubin of 12.2 with a direct of 7.9 and indirect of 4.3 with AST at 147, ALT 121, alkaline phosphatase 797 and an elevated LDH of 290. She had no significant pain. A CT of the abdomen and pelvis was completed in the Emergency Department prior to admission and per radiology interpretation of contrast CT of the abdomen and pelvis there was note of irregular pancreatic head mass with a common bile duct and pancreatic ductal obstruction and diffuse hepatic metastasis consistent with metastatic pancreatic cancer. Also of note was a possible partial small bowel obstruction with transition point in the midline of the lower abdomen along with diverticulosis but no evidence of diverticulitis. Dr. Nielson, E. R. physician, requested the patient be admitted after a lengthy discussion with family members present at time of admission to the E. R., who requested the patient be intially be treated here at [facility] until further discussion could be had in regards to plans of further management and possible transfer to a specialist to further address the acute findings. The patient now is going to be admitted to the Medical/Surgical floor for ongoing treatment of the underlying possible small bowel obstruction and underlying dehydration. PAST MEDICAL HISTORY: 1. Diabetes mellitus type 2 on oral and insulin therapy. 2. Hypertension. PAST SURGICAL HISTORY: 1. Cholecystectomy. 2. Appendectomy. 3. Hysterectomy. OB HISTORY: She has had 4 pregnancies and has given to 4 children. CURRENT MEDICATIONS: Listed at time of admission: 1. NovoLog 16 units b.i.d. 2. Viberzi 75 mg daily. 3. Nature-Throid 65 mg daily. 4. Donepezil 10 mg daily. 5. Losartan 320 mg daily. 6. Lavelle 5/325 one every 8 hours as needed for pain. ALLERGIES: CODEINE, PROPOXYPHENE, TOPIRAMATE. FAMILY HISTORY: Positive for diabetes mellitus, coronary artery disease and unknown cancers. 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 Does not use illicit drugs or alcohol. REVIEW OF SYSTEMS: CONSTITUTIONAL: Noted general malaise and fatigue. HEENT: No reported nasal congestion, headaches, vision changes, sore throat or ear ache. RESPIRATORY: No shortness of breath, exertional dyspnea or cough. CARDIOVASCULAR: No reported chest pains, palpitations or syncopal episodes. GASTROINTESTINAL: As noted in History of Present Illness, intermittent abdominal pains with some diarrhea longstanding according to the family. GENITOURINARY: Denies any dysuria, hematuria or other urinary symptoms. INTEGUMENT: As noted in History of Present Illness, worsening pruritus with worsening jaundice. NEUROLOGIC: Has history of dementia but no reported other neurological symptoms or weaknesses. PHYSICAL EXAMINATION: VITAL SIGNS: In the Emergency Department, temperature 99.6, pulse 78, blood pressure 178/75, respirations 18, satting 97% on room air. Admission weight was 51.0 kg. GENERAL: The patient is alert and appears to be comfortable in no acute distress at time of admission to the Medical/Surgical floor. She is well nourished. Does look mildly dehydrated. HEENT: Tympanic membranes are clear bilaterally. Oropharynx is pink and moist without any notable lesions. Sclera are noted to be icteric. NECK: Supple, non-tender with full range of motion. No jugular venous distention. CHEST: Lungs are clear to auscultation without any rhonchi, wheezing or rales. CARDIOVASCULAR: Regular rate and rhythm. No appreciable murmurs, gallops, or rubs. ABDOMEN: Some mild tenderness in the upper rifght quadrant with palpation. No rebound tenderness or guarding or other peritoneal signs. Abdomen was soft with positive bowel sounds. EXTREMITIES: No clubbing, cyanosis or edema. NEUROLOGIC: She is alert and oriented times three. Cranial nerves II-XII are grossly intact. Facial features are symmetrical. Extraocular movements are within normal limits. There is no notable nystagmus. INTEGUMENT: Significantly jaundiced from the head to mid abdomen. LABORATORY FINDINGS: Initial CBC showed white count 12,300, hemoglobin 10.9, hematocrit 32.4, platelet count 317,000. Differential did show a left shift. Coagulation studies showed slightly elevated PT of 12.9 but INR was 1.14 with PTT 29.5. Chemistries initially showed potassium 3.2, otherwise electrolytes were within normal limits. BUN was 10, creatinine 0.42, glucose on admission was 68, calcium 9.7. Initial bilirubin was 12.2 with direct of 7.9 and indirect of 4.3. AST was 147, ALT 121, alkaline phosphatase 197. Ammonia level was 38. LDH 290. Cardiac enzymes showed troponin 0.04 with CK of 56. Beta natriuretic peptide 172. Albumin 2.9, amylase 17, lipase 18, TSH 1.52. Urinalysis showed cr in color with 500 glucose, 2+ urobilinogen with microscopic showing 0 RBCs, 1 to 3 WBCs, rare bacteria and 1 to 3 epithelials. MICROBIOLOGY: She has 2 sets of blood cultures that are pending. RADIOLOGY: Abdominal and pelvic CT in the Emergency Department with contrast per radiology interpretation showed irregular pancreatic head mass with common bile duct/pancreatic duct obstruction with diffuse hepatic metastasis, findings consistent with metastatic pancreatic cancer and a note of a partial small bowel obstruction with transition point in the midline of the lower abdomen with diverticulosis but no evidence of diverticulitis. ASSESSMENT: 1. Elevated liver functions with CT findings concerning for pancreatic mass with common bile duct and pancreatic ductal obstruction will diffuse hepatic metastasis concerning for metastatic pancreatic cancer resulting in a malignant extrabiliary obstruction. 2. Jaundice secondary to #1 3. Cholestasis associated pruritus. 4. Concern for partial small bowel obstruction with transition point in the mid lower abdomen. 5. CT evidence of diverticulosis without any evidence of diverticulitis. 6. Moderate dehydration secondary to some nausea and vomiting with poor oral intake. 7. Leukocytosis likely secondary to #1. 8. Mild electrolyte imbalance with hypokalemia. 9. History of hypertension. 10. History of type 2 diabetes mellitus on oral and insulin therapy. PLAN: The patient is going to be admitted to the Medical/Surgical floor. After discussing with family, the family requested that the patient be admitted in efforts to treat the underlying dehydration and her symptomology in efforts to further followup with possible transfer to a facility for possible biliary stenting and further evaluation with Oncology and Gastroenterology. She will be NPO. She is on IV fluids with D5 half normal saline with 20 of potassium at 125 an hour for maintenance fluids. Will work in the morning to facilitate a possible transfer to either [facility] or [facility]. Dr. Lux is to see the patient in the morning to further discuss the patient's prognosis and further needed treatment with the family. Will anticipate length of stay to be 2 to 3 days, possibly less depending on availability to have the patient transferred. Until then, will continue to treat for the possible small bowel obstruction and dehydration with fluids, antiemetics and pain medication as needed, and bowel rest. Will closely monitor her laboratory studies. Until discharge and transfer, continue to monitor and treat appropriately. #[id number] [facility]
[2017-10-28] MEDS ORDERED: DEXTROSE 50% 25 GM/50 ML SYG IV PRN (03:15)
[2017-10-28] MEDS ORDERED: MORPHINE SULFATE INJ 10 MG/ML VIAL IV PRN (03:15)
[2017-10-28] MEDS ORDERED: GLUCAGON INJ 1 MG VIAL SUBCU PRN (03:15)
[2017-10-28] MEDS ORDERED: ONDANSETRON INJ 4 MG/2 ML VIAL IV PRN (03:15)
[2017-10-28] MEDS ORDERED: KCL 20MEQ/0.45% NS 1,000 ML IVS PRN (03:20)
[2017-10-28] MEDS: diphenhydrAMINE HCL 50 MG/ML VIAL IV PRN ×5 (03:26→20:27)
[2017-10-28] MEDS ORDERED: IV SET AND CAP CHANGE INJ INJ SCH (03:30)
[2017-10-28] MEDS: INSULIN LISPRO 100 UNITS/ML PEN SUBCU SCH ×3 (06:13→18:09)
[2017-10-28] MEDS: SODIUM CHLORIDE 0.9% (FLUSH) 10 ML SYG IV PRN ×2 (07:59→20:28)
[2017-10-28] MEDS ORDERED: KCL 20MEQ/D5 1/2NS 1,000 ML IVS ONE (10:17)
[2017-10-28] MEDS: KCL 20MEQ/D5 1/2NS 1,000 ML IVS PRN ×2 (10:21→18:14)
--- NOTE | 2017-10-28 13:34 | PCM.CORE ---
Physician DVT/VTE - Contraindications Medication Contraindication: Medical Contraindication - possible procedure.. biliary stent - Nurse DVT Assessment & Total Each Risk Factor Represents 3 Points: Age over 75 years Each Risk Factor Represents 2 Points: Malignancy (present/past) Each Risk Factor Represents 1 Point: Medical PT at Bed Rest DVT Assessment Score: 6 - 5 or more Very High Risk Treatments: Early Ambulation *, Sequential Compression Device
[2017-10-28 18:18] VITALS: BP 153/76; TEMP 97.1; O2SAT 97
--- NOTE | 2017-10-29 09:13 | DS ---
SUPERVISING PHYSICIAN: Shane Lux MD DISCHARGE DIAGNOSIS: 1. Elevated liver functions with CT findings concerning for pancreatic mass with common bile duct and pancreatic ductal obstruction will diffuse hepatic metastasis concerning for metastatic pancreatic cancer resulting in a malignant extrabiliary obstruction. 2. Jaundice secondary to #1 3. Cholestasis associated pruritus. 4. Concern for partial small bowel obstruction with transition point in the mid lower abdomen. 5. CT evidence of diverticulosis without any evidence of diverticulitis. 6. Moderate dehydration secondary to some nausea and vomiting with poor oral intake. 7. Leukocytosis likely secondary to #1. 8. Mild electrolyte imbalance with hypokalemia. 9. History of hypertension. 10. History of type 2 diabetes mellitus on oral and insulin therapy. HISTORY OF PRESENT ILLNESS: Ms. Mercado is a 77 year-old female patient that presented to the Emergency Department secondary to worsening jaundice. She noted that she had been having increasing jaundice over the last several days and before that had started having some significant itching. One of the patient's family members was concerned that some of her medications may be resulting in her symptoms which had been started in the last several weeks. She had also noted that she had not been having any significant nausea or vomiting, or any kind of significant pain. She did have at some point mid right upper quadrant pain after a small meal, but again obviously the jaundice had worsened to where the patient was yellow extending from the top of her head down to the mid chest. A neighbor actually brought her to the Emergency Department after her family members had contacted her primary care provider, Dr. Lux, who recommended that she be seen and evaluated in the Emergency Department for the worsening developing jaundice. She had no significant history of hepatitis and has been fairly healthy in the last several weeks. She has noted that she has had some watery stools in the last week or so, but is unsure if she has had any blood in her stools and that she has also been somewhat incontinent of stool at times. Initial lab work in the Emergency Department was significant for mild leukocytosis of 12,300 with a left shift. Chemistries show her liver functions were significantly elevated with an initial total bilirubin of 12.2 with a direct of 7.9 and indirect of 4.3 with AST at 147, ALT 121, alkaline phosphatase 797 and an elevated LDH of 290. She had no significant pain. A CT of the abdomen and pelvis was completed in the Emergency Department prior to admission and per radiology interpretation of contrast CT of the abdomen and pelvis there was note of irregular pancreatic head mass with a common bile duct and pancreatic ductal obstruction and diffuse hepatic metastasis consistent with metastatic pancreatic cancer. Also of note was a possible partial small bowel obstruction with transition point in the midline of the lower abdomen along with diverticulosis but no evidence of diverticulitis. Dr. Nielson, [facility] physician, requested the patient be admitted after a lengthy discussion with family members present at time of admission to the . , who requested the patient be initially be treated here at [facility] until further discussion could be had in regards to plans of further management and possible transfer to a specialist to further address the acute findings. The patient now is going to be admitted to the Medical/Surgical floor for ongoing treatment of the underlying possible small bowel obstruction and underlying dehydration. LABORATORY: CBC showed initial leukocytosis at 12,300, persistent, but showing improvement prior to discharge down to 10,900. Hemoglobin and hematocrit were stable at 10.1 and 31.3. Platelet count 291,000. Differential did show a mild left shift that was improved prior to discharge. Coagulation studies on admission showed a slightly elevated PT, but at discharge PT was normal at 12.4 , PT-T 29.9. Chemistries showed electrolytes with mildly low potassium at 3.2. At discharge and after fluids, electrolytes had normalized. BUN 7, creatinine less than 0.4, blood sugars between 68, 85 and 76. Liver functions showed elevation with initial total bilirubin at 12.2 with direct being 7.9, indirect 4.3. AST showed at elevated at 147 initially, ALT 121, alkaline phosphatase 797. Prior to discharge and with fluids and prior to transfer, bilirubin was down to 11.6, direct 7.6, indirect 4.0. AST was essentially unchanged at 146, ALT slightly improved down to 114, alkaline phosphatase down to 710. Ammonia level was slightly elevated at 39. LDH was high at 290. Urinalysis showed 500 glucose, 2.0 urobilinogen on dipstick with microscopic within normal limits. MICROBIOLOGY: Blood cultures were negative since admission. RADIOLOGY: Abdominal and pelvic CT in the Emergency Department prior to admission and radiology interpretation of a contrast CT showed irregular pancreatic head mass with common bile duct/pancreatic duct obstruction with diffuse hepatic metastasis, findings consistent with metastatic pancreatic cancer as well as a partial small bowel obstruction with transition point in the midline of the lower abdomen with diverticulosis but no evidence of diverticulitis. HOSPITAL COURSE: Ms. Mercado was admitted early the morning of 10/28/17 from the Emergency Room for initiation of treatment for underlying dehydration. She was started on fluids and responded well. She had minimal requirements for pain control. She was having some itching which was controlled with Benadryl. After discussion with family, transfer was secured to [facility] for further evaluation and possible biliary stent placement. The patient remained stable. She was NPO during the hospitalization and again was hemodynamically stable. At discharge, vital signs showed temperature 97.1, pulse 72, blood pressure 153/ 76, respirations 16, saturation 97% on room air. PLAN: Ms. Mercado was discharged to be transferred to [facility] via ambulance. Dr. Almendarez was the accepting physician. Instructions were to continue with NPO status, IV sedation and pain management en route. All other medications were held, but a current list of her medications was provided at time of discharge. At discharge, her condition was serious, but stable. #[id number] [facility]
== END 2017-10-28 20:40 | disposition short-term general hospital (02) | DRG 435 ==
LOC: ER 22:09 → MS 10-28 01:57 → OBSVTOIN 10-28 01:57
PROVIDERS: ADMIT Nurse Practitioner Family; ATTEND Nurse Practitioner Family
PROC: BW21YZZ Computerized Tomography (CT Scan) of Abdomen and Pelvis using Other Contrast (ICD-10-PCS; principal; 2017-10-28)
DX: C78.7 Secondary malignant neoplasm of liver and intrahepatic bile duct (principal); K83.1 Obstruction of bile duct; C25.0 Malignant neoplasm of head of pancreas; E87.6 Hypokalemia; E86.0 Dehydration; E11.9 Type 2 diabetes mellitus without complications; R15.9 Full incontinence of feces; F03.90 Unspecified dementia, unspecified severity, without behavioral disturbance, psychotic disturbance, mood disturbance, and anxiety; I10 Essential (primary) hypertension; Z79.4 Long term (current) use of insulin; Z79.84 Long term (current) use of oral hypoglycemic drugs; Z79.891 Long term (current) use of opiate analgesic; Z88.5 Allergy status to narcotic agent; Z88.8 Allergy status to other drugs, medicaments and biological substances